=== PATIENT | male | born 1940 | race Caucasian/White ===

== ENCOUNTER → 2023-06-21 10:46 | Outpatient (REF) | payer MEDICARE, OTHER, SELFPAY | LOC: DHCBC MAIN 10:46 | PROVIDERS: ATTENDING PHYSICIAN Internal Medicine Cardiovascular Disease; FAMILY PHYSICIAN Family Medicine | DX: I10 Essential (primary) hypertension (principal); I25.10 Atherosclerotic heart disease of native coronary artery without angina pectoris; E78.00 Pure hypercholesterolemia, unspecified; I77.811 Abdominal aortic ectasia | CPT/HCPCS: 93306 ==

== ENCOUNTER → 2023-06-22 10:02 | Outpatient (REF) | payer MEDICARE, OTHER, SELFPAY | LOC: WOUND 10:02 | PROVIDERS: ATTENDING PHYSICIAN Surgery; REFERRING PHYSICIAN Family Medicine | DX: T81.31XA Disruption of external operation (surgical) wound, not elsewhere classified, initial encounter (principal); S21.209A Unspecified open wound of unspecified back wall of thorax without penetration into thoracic cavity, initial encounter; I25.10 Atherosclerotic heart disease of native coronary artery without angina pectoris; I10 Essential (primary) hypertension; T81.41XA Infection following a procedure, superficial incisional surgical site, initial encounter; X58.XXXA Exposure to other specified factors, initial encounter | CPT/HCPCS: 99212 ==

== ENCOUNTER 2023-12-21 19:40 | Observation (INO) | payer MEDICARE, OTHER, SELFPAY ==
[2023-12-21 10:55] VITALS: BP 147/61
--- NOTE | 2023-12-21 11:44 | ED.GENMED ---
History of Present Illness
<Eugenia Bullock PA-C - Last Filed: 12/21/23 19:42>
General
Chief Complaint: Weakness
Source: patient and family (Daughter at bedside)
Exam Limitations: none
Time Seen by Provider: 12/21/23 11:16
Nursing documentation reviewed up to this point in time: agreed with
History of Present Illness
History of Present Illness:
Patient is an 83-year-old male with history hypertension, hyperlipidemia presenting to the emergency department for evaluation of generalized bodyaches and fatigue for the past 2 days. Patient states that he feels generally somewhat weak but denies
any associated fever, chills, chest pain, or shortness of breath, or urinary symptoms.. Patient denies any numbness/tingling in his extremities, visual changes, headache, or difficulty with speech. Patient denies any new rashes. Patient reports
that he did recently have a COVID infection about 2 to 3 weeks ago for which symptoms have mostly resolved at this point. At that time he did have a persistent cough and is primary care provider to treat him with a course of antibiotics. He states
cough is mostly resolved at this point.
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 He also endorses spending a good amount of time outdoors on the weekends mowing his lawn, gardening.
Patient has no known sick contacts.
Past History
<Eugenia Bullock PA-C - Last Filed: 12/21/23 19:42>
Past History
ED Past Medical History: CAD (1 stent followed by CBC), HTN, Hypercholesterolemia and Other (gout)
Social History
Tobacco: Non-smoker
Alcohol: Daily (Gin daily after 5pm, 1-3 glasses/day)
Drug: None
Living: with family
Employment: Employed
Review of Systems
<Eugenia Bullock PA-C - Last Filed: 12/21/23 19:42>
Review of Systems
Allergies reviewed?: Yes
All Other Systems: ROS reviewed and negative except as documented in HPI and ROS
Phy Exam
<Eugenia Bullock PA-C - Last Filed: 12/21/23 19:42>
Physical Exam
Physical Exam:
Vitals: Patient's vital signs are stable. Afebrile
General: Patient is well appearing, no acute distress. Nontoxic-appearing
Skin: Warm and dry, no rashes or lesions
Head: Normocephalic, atraumatic
Eyes: Sclera nonicteric. EOMs intact. No nystagmus.
Throat: Protecting airway. Moist mucous membranes
Neck: Normal ROM, no cervical spine tenderness, no meningismus
Cardiac: Regular rate and rhythm, no murmurs.
Pulm: Normal respiratory effort, no wheezes, rales, rhonchi heard on exam.
Abdomen: Abdomen soft. No abdominal tenderness.
Extremities: No evidence of cyanosis or edema. Great distal pulses in bilateral upper and lower extremities. Strength 5 out of 5 in upper and lower extremities. Some decreased pilot submersible strength noted bilaterally.
Neuro: AAOx3. CN II-XII intact. No focal neurologic deficits. Sensation fully intact. Normal finger-nose. Speech fluid
Psychiatric: Normal affect.
Course
<Eugenia Bullock PA-C - Last Filed: 12/21/23 19:42>
Orders/Labs/Results
Orders:
Orders
12/21/23 11:44
Electrocardiogram (*1) Urgent
Reason for Study: Fatigue / Weakness
EKG- Treatment ONCE
0.9% Sodium Chloride 1000 ml [Nss] 1,000 ml IV BOLUS
12/21/23 11:54
C-Reactive Protein Urgent
Comment: ADD ON
Complete Blood Count/With Diff Urgent
Comprehensive Metabolic Panel Urgent
Creatine Phosphokinase Urgent
Comment: ADD ON
Erythrocyte Sed Rate Urgent
Comment: ADD ON
Lyme Progressive Urgent
Monotest Urgent
Comment: MONOSPOT ADDED ON BY FLOOR 4:45PM 12-21-23
Rheumatoid Agglutinin Urgent
Comment: ADD ON
TSH Reflex To Free T4 Urgent
Comment: ADD ON
Uric Acid Urgent
Comment: ADDED
Urinalysis Reflex To Culture Urgent
Date Specimen was Collected: 12/21/23
Time Specimen was Collected: 11:48
12/21/23 12:39
Add On- LAB Urgent
Tests Added?: creatine kinase
12/21/23 14:35
CT Head W/o Iv Contrast Urgent
Comment:
Reason For Exam: weakness
12/21/23 Dinner
Regular
At Your Request: Full Participation
Does patient need a safe tray?: No
12/21/23 16:37
PT Consult [Pt Eval And Treat] Urgent
Activity Level: As Tolerated
12/21/23 16:46
Add On- LAB Urgent
Tests Added?: monospot
12/21/23 17:14
Add On- LAB Urgent
Tests Added?: ESR/ CRP
12/21/23 18:29
Add On- LAB Urgent
Tests Added?: TSH w/ reflex to T4
12/21/23 18:59
Admit/Transfer Patient As Directed
Co-Sign Provider:
Level of Care: Observation services
Assign to:: Medical/Surgical
Physician / Group: miguel
Diagnosis: reactive arthritis
Code Status As Directed
Resuscitation Status: Full Code
12/21/23 19:03
Prednisone [Deltasone] 40 mg PO DAILY STA
12/21/23 22:22
Acetaminophen [Tylenol] 650 mg PO Q4HPRN PRN
Heparin 5,000 units SC Q12
Niacin 100 mg PO BID
Ramipril [Altace] 10 mg PO BID
12/21/23 22:22
Activity As Directed
Activity Level: As Tolerated
Vital Signs As Directed
Frequency: Per unit guidelines
Ot Eval And Treat Routine
DX Deep Vein Thrombosis Video Routine
12/22/23 06:55
Complete Blood Count/With Diff IN AM
12/22/23 08:00
Amlodipine [Norvasc] 10 mg PO DAILY
Aspirin Chewable [Low Strength Aspirin] 81 mg PO DAILY
Febuxostat (Non-Form) [Uloric] 80 mg PO DAILY
Metoprolol Xl [Toprol Xl] 25 mg PO DAILY
Rosuvastatin Calcium [Crestor] 20 mg PO DAILY
12/22/23 11:54
Cyclic Citrullinat Pep IgG/IgA [S] Urgent
Comment: ADD ON
Abnormal Lab Results
12/21/23
11:54
WBC 13.5 H 10^3/uL
(4.8-10.8)
RBC 4.50 L 10^6/uL
(4.70-6.10)
MCV 96.7 H fL
(80.0-94.0)
MCH 32.7 H pg
(27.0-31.0)
Abs Immat Gran (auto) 0.1 H 10^3/uL
(0-0.05)
Absolute Neuts (auto) 11.6 H 10^3/uL
(1.4-6.5)
Absolute Lymphs (auto) 0.9 L 10^3/uL
(1.2-3.4)
Absolute Monos (auto) 1.0 H 10^3/uL
(0.1-0.6)
Neutrophils % 85.5 H %
(42.2-75.2)
Lymphocytes % 6.5 L %
(20.5-51.1)
ESR 24 H mm/hour
(0-20)
BUN 28 H mg/dl
(9-20)
Glucose 130 H mg/dl
(70-99)
Uric Acid 2.0 L mg/dl
(3.5-8.5)
C-Reactive Protein 145.60 H mg/L
(0.0-10.00)
Urine Ketones 1+ A
(Negative)
12/21/23 11:54
12/21/23 11:54
Vital Signs
Initial and Last Documented VS:
Initial Vital Signs
Temp Pulse Resp BP Pulse Ox
98.6 F 85 16 147/61 98
12/21/23 10:55 12/21/23 10:55 12/21/23 10:55 12/21/23 10:55 12/21/23 10:55
Last Documented Vital Signs
Temp Pulse Resp BP Pulse Ox
97.9 F 83 20 150/75 96
12/22/23 15:30 12/22/23 15:30 12/22/23 15:30 12/22/23 15:30 12/22/23 15:30
<Yoel Null MD - Last Filed: 12/21/23 18:13>
Orders/Labs/Results
Orders:
Orders
12/21/23 11:44
Electrocardiogram (*1) Urgent
Reason for Study: Fatigue / Weakness
EKG- Treatment ONCE
0.9% Sodium Chloride 1000 ml [Nss] 1,000 ml IV BOLUS
12/21/23 11:54
C-Reactive Protein Urgent
Comment: ADD ON
Complete Blood Count/With Diff Urgent
Comprehensive Metabolic Panel Urgent
Creatine Phosphokinase Urgent
Comment: ADD ON
Erythrocyte Sed Rate Urgent
Comment: ADD ON
Lyme Progressive Urgent
Monotest Urgent
Comment: MONOSPOT ADDED ON BY FLOOR 4:45PM 12-21-23
Rheumatoid Agglutinin Urgent
Comment: ADD ON
TSH Reflex To Free T4 Urgent
Comment: ADD ON
Uric Acid Urgent
Comment: ADDED
Urinalysis Reflex To Culture Urgent
Date Specimen was Collected: 12/21/23
Time Specimen was Collected: 11:48
12/21/23 12:39
Add On- LAB Urgent
Tests Added?: creatine kinase
12/21/23 14:35
CT Head W/o Iv Contrast Urgent
Comment:
Reason For Exam: weakness
12/21/23 Dinner
Regular
At Your Request: Full Participation
Does patient need a safe tray?: No
12/21/23 16:37
PT Consult [Pt Eval And Treat] Urgent
Activity Level: As Tolerated
12/21/23 16:46
Add On- LAB Urgent
Tests Added?: monospot
12/21/23 17:14
Add On- LAB Urgent
Tests Added?: ESR/ CRP
12/21/23 18:29
Add On- LAB Urgent
Tests Added?: TSH w/ reflex to T4
12/21/23 18:59
Admit/Transfer Patient As Directed
Co-Sign Provider:
Level of Care: Observation services
Assign to:: Medical/Surgical
Physician / Group: miguel
Diagnosis: reactive arthritis
Code Status As Directed
Resuscitation Status: Full Code
12/21/23 19:03
Prednisone [Deltasone] 40 mg PO DAILY STA
12/21/23 22:22
Acetaminophen [Tylenol] 650 mg PO Q4HPRN PRN
Heparin 5,000 units SC Q12
Niacin 100 mg PO BID
Ramipril [Altace] 10 mg PO BID
12/21/23 22:22
Activity As Directed
Activity Level: As Tolerated
Vital Signs As Directed
Frequency: Per unit guidelines
Ot Eval And Treat Routine
DX Deep Vein Thrombosis Video Routine
12/22/23 06:55
Complete Blood Count/With Diff IN AM
12/22/23 08:00
Amlodipine [Norvasc] 10 mg PO DAILY
Aspirin Chewable [Low Strength Aspirin] 81 mg PO DAILY
Febuxostat (Non-Form) [Uloric] 80 mg PO DAILY
Metoprolol Xl [Toprol Xl] 25 mg PO DAILY
Rosuvastatin Calcium [Crestor] 20 mg PO DAILY
12/22/23 11:54
Cyclic Citrullinat Pep IgG/IgA [S] Urgent
Comment: ADD ON
Abnormal Lab Results
12/21/23
11:54
WBC 13.5 H 10^3/uL
(4.8-10.8)
RBC 4.50 L 10^6/uL
(4.70-6.10)
MCV 96.7 H fL
(80.0-94.0)
MCH 32.7 H pg
(27.0-31.0)
Abs Immat Gran (auto) 0.1 H 10^3/uL
(0-0.05)
Absolute Neuts (auto) 11.6 H 10^3/uL
(1.4-6.5)
Absolute Lymphs (auto) 0.9 L 10^3/uL
(1.2-3.4)
Absolute Monos (auto) 1.0 H 10^3/uL
(0.1-0.6)
Neutrophils % 85.5 H %
(42.2-75.2)
Lymphocytes % 6.5 L %
(20.5-51.1)
ESR 24 H mm/hour
(0-20)
BUN 28 H mg/dl
(9-20)
Glucose 130 H mg/dl
(70-99)
Uric Acid 2.0 L mg/dl
(3.5-8.5)
C-Reactive Protein 145.60 H mg/L
(0.0-10.00)
Urine Ketones 1+ A
(Negative)
12/21/23 11:54
12/21/23 11:54
Vital Signs
Initial and Last Documented VS:
Initial Vital Signs
Temp Pulse Resp BP Pulse Ox
98.6 F 85 16 147/61 98
12/21/23 10:55 12/21/23 10:55 12/21/23 10:55 12/21/23 10:55 12/21/23 10:55
Last Documented Vital Signs
Temp Pulse Resp BP Pulse Ox
97.9 F 83 20 150/75 96
12/22/23 15:30 12/22/23 15:30 12/22/23 15:30 12/22/23 15:30 12/22/23 15:30
<Eugenia Bullock PA-C - Last Filed: 12/21/23 19:42>
MDM/Problems Addressed
Differential Diagnosis Includes:
Not limited to: Viral illness, Lyme disease, post-COVID, UTI, cardiac arrhythmia, dehydration, GBS, PMR
MDM/Problems Addressed:
83-year-old male presenting with progressive bilateral weakness and myalgias for the past 2 days. Did have recent COVID infection approximately 3 weeks ago. No fever, chills, numbness/tingling in extremities. Patient's vital signs are stable, he
is afebrile. Physical exam as above. Patient is well-appearing, in no apparent distress. Heart regular rate and rhythm. Patient breathing without any difficulty, no apparent distress. Lungs clear bilaterally. No difficulty with swallowing.
Abdomen soft and nontender. Patient does have full strength in bilateral upper and lower extremities with great sensation. Great distal pulses in bilateral upper and lower extremities. He does have some mild decreased pilot submersible strength in bilateral
hands. There are no other focal neurologic deficits noted. He is alert and oriented x [address] and time. A lengthy workup in emergency department was performed. Labs noted. A mild leukocytosis of 13.5 which does appear chronic per
patient. There was some mild dehydration noted which patient was repleted with a bag of IV fluids. Urine shows no signs of infection. Both Lyme and monotest were negative. A TSH was obtained which was normal
Patient daughter was adamant on obtaining head CT. Did discuss low utility given no focal neurologic deficits and risk versus benefit was discussed with patient and family. They decided to proceed with head CT. Report was noted which shows no
acute intracranial abnormalities. There were some signs of decreased attenuation suggesting possible prior stroke. Patient is currently on aspirin and statin. Neurologically intact and no evidence that this is at all related to patient's
symptoms. No indication for acute stroke at this time
Inflammatory markers were ordered. ESR very minimally elevated at 24. CRP did come back significantly elevated at 145.6.
Patient and patient's family state is extremely out of character for patient. Given acute onset generalized weakness with progressive worsening�will admit for further workup. Low suspicion for PMR although in differential. It is possible that
symptoms may be related to some post viral syndrome including recent COVID versus GBS. Patient was seen by attending physician. Accepted to hospital service for observation and further evaluation.
Chronic conditions affecting care:
Hypertension
Acute Exacerbation and/or Progression of Chronic Illness:
Acutely hypertensive
<Eugenia Bullock PA-C - Last Filed: 12/21/23 19:42>
*Radiology
Radiology exam reviewed: preliminary read by ED provider and radiology read reviewed
*Pulse Oximetry
Patient hypoxic: no
*EKG
Interpreted by ED Provider?: Yes
EKG Intrepretation Date: 12/21/23
Interpretation: normal
Comparison EKG: changes noted
Heart Rate: 82
Rate: normal
Rhythm: sinus
[place]: normal axis
QRS Pattern: normal QRS
Ischemia: no ischemia
*[employer] Consultant Interpretation
Rate: [employer] Consultant- N/A
*Critical Care Note
Total Time (30-74mins, 75-104mins- exclusive of procedures): Not Applicable
ED Attending Note
<Eugenia Bullock PA-C - Last Filed: 12/21/23 19:42>
-
Portions of this chart may have been created with voice recognition software.� Occasional wrong word or��sound alike� substitutions may have occurred due to the inherent limitations of voice recognition software.
<Yoel Null MD - Last Filed: 12/21/23 18:13>
ED Attending Note
Patient seen and examined by attending physician: Yes
I performed the substantive portion of visit, reviewed & personally made and approve the management plan that is documented in note by myself or LATANYA.: Yes
ED Attending Note:
83-year-old male progressive weakness over 2 to 3 days. Appears symmetrical. No infectious symptoms no fever no headache no visual issues no swallowing issues.
Patient nontoxic in no distress. Clear lungs. Heart regular rate and rhythm. Abdomen nontender. Warm and dry. Perfusing well. Cranial nerves II through XII intact. No drift. Patient has weak zipper trimmer hand bilaterally. He has got no patellar
reflexes bilaterally. However he is able to ambulate relatively well.
Nonspecific leukocytosis that he has had in the past. No other infectious symptoms nonspecific general weakness. Theoretically Guillain-Bailey� syndrome would be in the differential. He did have a viral infection 3 weeks ago. COVID. Doubt central
neurologic issue. Polymyalgia rheumatica would be in the differential although unlikely. Will also check his thyroid. Discussed inpatient outpatient management with the family. They are not comfortable with outpatient further workup and patient
will be admitted to [facility] for further evaluation
Discharge Plan
Departure
Patient Disposition: Admit
Date of Disposition: 12/21/23
Time of Disposition: 17:16
Presentation/result/management discussed w/ accepting MD/DO: Hospitalist
Discharge Problem:
Generalized weakness, Fatigue, Myalgia, Leukocytosis
Interventions
Interventions:
*Nursing Disposition Last Done: 12/21/23 22:19
ED- Cardiac Assessment Last Done: 08/01/24 12:08
ED- Neurological Assessment Last Done: 12/21/23 12:08
ED- Pulmonary Assessment Last Done: 12/21/23 12:08
Discharge Date and Time
Discharge Date/Time: 12/21/23 22:21
[2023-12-21] MEDS: NSS 1000 IV (11:54)
[2023-12-21 12:09] LABS: Urine Albumin Negative (Neg - Trace); Urine Bilirubin Negative (Negative); Urine Character Clear (Clear); Urine Color Yellow; Urine Glucose Negative (Negative); Urine Ketone 1+ (Negative); Urine Leukocyte Negative (Negative); Urine Nitrite Negative (Negative); Urine Occult Blood Negative (Negative); Urine Specific Gravity 1.015 (<1.030); Urine Urobilinogen Negative (Neg - 1+)
[2023-12-21 12:10] LABS: % Basophils 0.3 % (0-2); % Eosinophils 0.2 % (0-6); % Immature Granulocytes 0.4 % (0-0.5); % Lymphocytes 6.5 % (20.5-51.1); % Monocytes 7.1 % (1.7-9.3); % Neutrophils 85.5 % (42.2-75.2); Absolute Immature Granulocytes 0.1 10^3/uL (0-0.05); Absolute Lymphocytes 0.9 10^3/uL (1.2-3.4); Absolute Neutrophils 11.6 10^3/uL (1.4-6.5); Hematocrit 43.5 % (39.0-52.0); Hemoglobin 14.7 g/dL (13.0-18.0); Mean Corp Hgb Conc. 33.8 g/dL (33.0-37.0); Mean Corpuscular Hgb 32.7 pg (27.0-31.0); Mean Corpuscular Volume 96.7 fL (80.0-94.0); Mean Platelet Volume 9.6 fL (7.4-10.4); Nucleated Red Blood Cells % 0 % (-); Platelet Count 213 10^3/uL (130-400); White Blood Cell Count 13.5 10^3/uL (4.8-10.8)
[2023-12-21 12:21] LABS: ALT (SGPT) 21 U/L (0-50); AST (SGOT) 26 U/L (17-59); Albumin 4.3 g/dl (3.5-5.0); Alkaline Phosphatase 102 U/L (38-126); Blood Urea Nitrogen 28 mg/dl (9-20); Calcium 9.9 mg/dl (8.4-10.2); Carbon Dioxide 26 mmol/L (22-30); Chloride 105 mmol/L (98-107); Glucose 130 mg/dl (70-99); Potassium 4.7 mmol/L (3.5-5.1); Sodium 139 mmol/L (135-145); eGFR > 60.00
[2023-12-21 13:40] LABS: Creatine Phosphokinase 80 U/L (55-170)
[2023-12-21 16:01] LABS: Lyme Antibody Screen, EIA Negative (Negative)
[2023-12-21 16:39] VITALS: BP 145/67
[2023-12-21 17:32] LABS: Erythrocyte Sed Rate 24 mm/hour (0-20)
[2023-12-21 17:45] LABS: Monotest Negative (Negative)
--- NOTE | 2023-12-21 18:04 | CM ---
Addendum entered by Dina Figueroa RN 12/21/23 18:27:
CM spoke with patient and daughter in room. Patient confirmed demographics. Patient lives with his . His daughter lives next to the duplex next to him. 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 Patient
has a PCP and has medication coverage.
[facility] letter given and explained to patient.
Original Note:
CM was asked to assist with discharge planning options for patient. CM reviewed PT evaluation. Patient was recommended for outpatient PT and would not be eligible for SNF unless private pay.
CM spoke with ED PA Eugenia Bullock. Plan was to admit for further work up of fatigue and weakness.
Dr. Null in to speak with patient.
--- NOTE | 2023-12-21 19:04 | HPS.HSE ---
Family Physician
-
Family Physician: Giacomo Garcia
Chief Complaint
-
joint pains
History of Present Illness
84-year-old female with past medical history of coronary artery disease, hypertension, hyperlipidemia, gout, alcohol use disorder, presenting with generalized body aches and fatigue for the past 2 days. He feels weak but denies any fevers or
chills, chest pain, shortness of breath or urinary symptoms. Denies any sore throat or runny nose, nausea vomiting or diarrhea, numbness or tingling, visual changes, headache, speech difficulties. He denies any rashes. He had COVID infection 2 to
3 weeks ago treated with prednisone and symptoms have resolved since then. He did have persistent cough that was treated with oral antibiotics but cough is resolved.
He complains of diffuse joint pains including knees, wrist, hand joints, worse in the morning and improves throughout the day. 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
He has not had a gout flare in several years and when he developed gout it was in the big toes.
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 He is medically out of time outdoors on the weekends mowing his lawn gardening. He denies any sick contacts.
He drinks 2 drinks of gin per day. Denies smoking.
Medical History
Past Medical History
Past Medical History: Reports Other (coronary artery disease, hypertension, hyperlipidemia, gout, alcohol use disorder,)
Past Surgical History: Reports None
Social History
Tobacco: Non-smoker
Alcohol: Daily
Drug: None
Family History
Family History: Not pertinent
Allergies / Home Medications
Allergies reflects when Allergies were last updated in [facility].
Home Medications with original date entered in [facility]
Allergy/Medication List:
Allergies
Allergy/AdvReac Type Severity Reaction Status Date / Time
No Known Allergies Allergy Verified 12/21/23 10:54
Home Medications
amlodipine 10 mg tablet 10 mg PO DAILY Blood Pressure 04/25/23
aspirin 81 mg chewable tablet 81 mg PO DAILY Blood Clot Prevention/Tx 04/25/23
febuxostat 80 mg tablet (Uloric) 80 mg PO DAILY Gout 04/25/23
metoprolol succinate 25 mg tablet,extended release 24 hr 25 mg PO DAILY Blood Pressure 04/25/23
niacin 100 mg tablet 100 mg PO BID Supplement 04/25/23
ramipril 10 mg capsule 10 mg PO BID Blood Pressure 04/25/23
acetaminophen 650 mg tablet,extended release 650 mg PO Q8HPRN PRN mild pain 12/21/23
rosuvastatin 20 mg tablet 20 mg PO DAILY 12/21/23
Review of Systems
-
History Source: Patient
A 12 point ROS was completed and negative except as noted: Yes
Constitutional: Reports No Symptoms
EENT: Reports No Symptoms
Respiratory: Reports No Symptoms
Cardiac: Reports No Symptoms
Abdomen/GI: Reports No Symptoms
: Reports No Symptoms
Musculoskeletal: Reports See HPI
Skin: Reports No Symptoms
Neurological: Reports No Symptoms
Endocrine: Reports No Symptoms
Hematologic/Lymphatic: Reports No Symptoms
Psych: Reports No Symptoms
Physical Exam
Vital Signs
Vital Signs
Temp Pulse Resp BP Pulse Ox
98.6 F 75 18 145/67 95
12/21/23 10:55 12/21/23 16:39 12/21/23 16:39 12/21/23 16:39 12/21/23 16:39
Physical Exam
General: Well Developed, Well Nourished and No Apparent Distress
HEENT: NormoCephalic, Moist mucous membranes and Atraumatic
Respiratory: Clear
Cardiac: S1/S2 and Regular Rhythm; No Murmur or Rub
GI: Soft, Non Tender, Non Distended and Normal Bowel Sounds; No Organomegaly
Rectal: Deferred by Provider
Musculoskeletal: No Clubbing, No Cyanosis and No Edema
Skin: No Rash
Neuro: Nonfocal/grossly intact
Laboratory Results
-
12/21/23 11:54
12/21/23 11:54
Laboratory Results
Total Bilirubin 1.0 mg/dl (0.2-1.3) 12/21/23 11:54
AST 26 U/L (17-59) 12/21/23 11:54
ALT 21 U/L (0-50) 12/21/23 11:54
Alkaline Phosphatase 102 U/L (38-126) 12/21/23 11:54
Data Reviewed
-
Lab Data: Labs Reviewed by me
Old Records: Reviewed
Impression/Plan
-
IMPRESSION:
PLAN:
# Generalized joint pain/weakness suspect reactive arthritis from post COVID, versus gout, given history of gout
-No focal joint inflammation on examination
-CK normal so myositis unlikely
-Elevated CRP
-Urinalysis negative
-CT head negative
-Monospot pending
-Check uric acid
-Start prednisone 40 mg
-PT/OT
-Outpatient follow-up with rheumatology
# Chronic leukocytosis
-Stable
Coronary artery disease
-Continue aspirin
-Continue metoprolol
Essential hypertension
-Continue amlodipine
-Continue ramipril
Hyperlipidemia
-Continue statin
Gout
-Continue Oxistat
Alcohol use disorder
Full code
DVT prophylaxis- heparin
Regular diet
[2023-12-21] MEDS: DELTASONE 40 MG PO (19:47)
[2023-12-21 22:30] VITALS: BP 149/67; BMI 27.0
--- NOTE | 2023-12-21 22:30 | PTCARENOTE ---
Pt arrived onto floor @2230. Pt AAOx3 and able to ambulate into room without assistance. Pt with no complaints of pain at this time, vital signs are stable. Pt oriented to room and call gibbs; will continue to monitor
[2023-12-21] MEDS: HEPARIN 5000 UNITS SC (23:27)
[2023-12-21] MEDS: NIACIN 100 MG PO (23:27)
[2023-12-21] MEDS: ALTACE 10 MG PO (23:27)
[2023-12-22 07:00] VITALS: BP 162/75
[2023-12-22 07:07] LABS: % Basophils 0.2 % (0-2); % Immature Granulocytes 0.5 % (0-0.5); % Monocytes 3.8 % (1.7-9.3); % Neutrophils 87.5 % (42.2-75.2); Absolute Lymphocytes 0.5 10^3/uL (1.2-3.4); Absolute Monocytes 0.2 10^3/uL (0.1-0.6); Absolute Neutrophils 5.6 10^3/uL (1.4-6.5); Hematocrit 40.8 % (39.0-52.0); Hemoglobin 13.8 g/dL (13.0-18.0); Mean Corp Hgb Conc. 33.8 g/dL (33.0-37.0); Mean Corpuscular Hgb 33.2 pg (27.0-31.0); Mean Corpuscular Volume 98.1 fL (80.0-94.0); Mean Platelet Volume 9.5 fL (7.4-10.4); Nucleated Red Blood Cells % 0 % (-); Platelet Count 187 10^3/uL (130-400); Red Blood Cell Count 4.16 10^6/uL (4.70-6.10); Red Cell Dist. Width 12.9 % (11.5-14.5); White Blood Cell Count 6.4 10^3/uL (4.8-10.8)
[2023-12-22] MEDS: DELTASONE 40 MG PO (07:56)
[2023-12-22] MEDS: CRESTOR 20 MG PO (07:57)
[2023-12-22] MEDS: HEPARIN 5000 UNITS SC (07:57)
[2023-12-22] MEDS: LOW STRENGTH ASPIRIN 81 MG PO (07:57)
[2023-12-22] MEDS: NORVASC 10 MG PO (07:57)
[2023-12-22] MEDS: TOPROL XL 25 MG PO (07:57)
[2023-12-22] MEDS: ALTACE 10 MG PO (09:01)
[2023-12-22] MEDS: NIACIN 100 MG PO (09:01)
[2023-12-22] MEDS: ULORIC 80 MG PO (09:01)
--- NOTE | 2023-12-22 09:35 | W.PN.HOSP.TC ---
Addendum entered and electronically signed by Juliane Markham MD 12/22/23 16:08:
I saw and evaluated the patient independently. I reviewed the resident�s note and agree with findings and plan as documented by Dr. Tan.
GENERAL: well developed, well nourished, male in no apparent distress
HEENT: NC/AT
HEART: regular rate and rhythm, +S1, +S2
LUNGS : clear to auscultation bilaterally
ABDOM: soft, nontender, nondistended, + bowel sounds
EXT: no cyanosis, clubbing, or edema--no DIP, PIP joint tenderness, wrists mobile no pain
NEUROLOGIC: grossly intact
Generalized joint pain/weakness suspect reactive arthritis from post COVID--pt also with features of RA by history---No focal joint inflammation on examination--Elevated CRP and ESR--rolling walker as per PT/OT---Start prednisone 40 mg. Patient
states after prednisone he feels much better and all weakness and stiffness has gone--Outpatient follow-up with rheumatology--Rheumatoid factor and CCP labs ordered--Discharge today with steroids
Chronic leukocytosis--Stable
Coronary artery disease-Continue aspirin-Continue metoprolol
Essential hypertension-Continue amlodipine-Continue ramipril
Hyperlipidemia-Continue statin
Gout-Continue Oxistat
Alcohol use disorder
Full code
DVT prophylaxis- heparin
Original Note:
Today's Communication/Plan
-
Patient feels much better on prednisone. Stable and discharged today.
Assessment / Plan
Assessment / Plan
# Generalized joint pain/weakness suspect reactive arthritis from post COVID
-No focal joint inflammation on examination
-Elevated CRP and ESR
-Start prednisone 40 mg. Patient states after prednisone he feels much better and all weakness and stiffness has gone.
-PT/OT
-Patient has history of increased stiffness and joint tenderness in the morning consistent with rheumatoid arthritis
-Potentially underlying rheumatoid arthritis exacerbated post COVID infection.
-Outpatient follow-up with rheumatology
-Rheumatoid factor and CCP labs ordered
-Discharge today with steroids
-follow-up in rheumatology
# Chronic leukocytosis
-Stable
Coronary artery disease
-Continue aspirin
-Continue metoprolol
Essential hypertension
-Continue amlodipine
-Continue ramipril
Hyperlipidemia
-Continue statin
Gout
-Continue Oxistat
Alcohol use disorder
Full code
DVT prophylaxis- heparin
Regular diet
Anticipated Discharge: Today
Subjective/Interval History
-
Date of Service: December 22, 2023
Objective Data
-
Labs:
Laboratory Results
12/22/23
06:55
WBC 6.4
Hgb 13.8
Hct 40.8
Plt Count 187
Vital Signs:
Vital Signs
Temp Pulse Resp BP Pulse Ox
97.3 F 87 18 149/67 96
12/22/23 07:00 12/22/23 07:00 12/22/23 07:00 12/22/23 07:57 12/22/23 09:05
I&O
12/21/23 12/22/23 12/23/23
06:59 06:59 06:59
Intake Total 240 / 240
Balance 240 / 240
Review of Systems
-
History Source: Patient
Respiratory: Reports No Symptoms
Cardiac: Reports No Symptoms
Abdomen/GI: Reports No Symptoms
Genitourinary: Reports No Symptoms
Musculoskeletal: Reports No Symptoms
Skin: Reports No Symptoms
Neuro: Reports No Symptoms
Physical Exam
-
General: Well Developed, Well Nourished and No Apparent Distress
Respiratory: Clear to Auscultation
Cardiac: Regular Rhythm and S1/S2
GI: Soft, Nontender and Nondistended
Musculoskeletal: No Edema and Other (No hand, wrist, knee, ankle joint tenderness with palpation); Negative Cyanosis, Edema, Right Lower Extrem or Edema, Left Lower Extrem
Neuro: AO x 3
Psych: Calm
--- NOTE | 2023-12-22 14:38 | CM ---
Patient seen at bedside. Patient lives in a duplex 2 story with daughter on the other side of the home. Patient states that he still works and that he plans to go home with no needs at this time. Patient PCP is Dr. Garcia and he will see him upon
return home. Patient stated that he understood the OBS/EGAN form as it had been explained to him yesterday. Patient plan is for discharge home today. CM will continue to follow for discharge planning needs.
Plan; home with no needs; follow up with pcp
[2023-12-22 15:30] VITALS: BP 150/75
--- NOTE | 2023-12-22 19:45 | W.DCSUMMARY ---
Addendum entered and electronically signed by Juliane Markham MD 12/22/23 20:58:
Read, reviewed, and agree. See same day progress note for additional details. Time spent coordinating care, DC planning, review of DC plan of care with resident, transition of care, review of records in EMR, med rec, consults, notes, d/w
consultants, nursing, family, and CM = 16 mins
Original Note:
Discharge Summary
Discharge Data
Date of Admission: 12/21/23
Date of Discharge: 12/22/23
-
Pending Results: Yes
Additional Pending Results:
Rheumatoid factor, CCP
Hospital Course
Primary diagnosis:
-Generalized joint pain likely reactive arthritis
Secondary diagnosis:
� Chronic leukocytosis
� Coronary artery disease
� Essential hypertension
� Hyperlipidemia
� Gout
� Alcohol use disorder
Hospital course:
Jose R is an 84-year-old male who presented to the ED with weakness and diffuse joint pains. 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 Patient was admitted and worked up for diffuse weakness. 3 weeks prior
patient had COVID infection and treated with prednisone. Patient had residual cough treated with antibiotics. Since then symptoms have resolved. Head CT did not show any acute findings. ESR 24, CRP 145.6, uric acid 2.0. White blood cell count
13.5 however patient has a history of chronic leukocytosis. Patient was started on prednisone 40 mg. The next morning patient felt significantly better and almost back to baseline. All weakness and stiffness had gone.
Today, patient is clinically stable and discharged on prednisone taper. Recommended to follow-up with rheumatology.
Discharge Plan
-
Patient Disposition: Home (Routine Discharge)
Discharge Diagnosis/Procedures: Generalized joint pain likely reactive arthritis, chronic leukocytosis, coronary artery disease, essential hypertension, hyperlipidemia, gout, alcohol use disorder
Condition: Good
Diet: As tolerated
Activity: As tolerated
Driving Restrictions: As prior to admission
Bathing Restrictions: None
Referrals:
Nataliia Keller MD [Active] - (Call for appointment)
Giacomo Garcia DO [Family Provider] - in one week
Additional Discharge Medication Instructions: If symptoms start to develop while on the taper, maintain or increase prednisone dose. Reach out to PCP for refill prescription.
Prescriptions:
New
prednisone 10 mg Tablet
See Rx Instructions .ROUTE .COMPLEX Qty: 30 0RF
Rx Instructions:
Take By Mouth:
40 mg daily x3 days, 30 mg daily x3 days,
20 mg daily x3 days, 10 mg daily x3 days.
Continued
amlodipine 10 mg Tablet
10 mg PO DAILY
niacin 100 mg Tablet
100 mg PO BID
aspirin 81 mg Tablet,Chewable
81 mg PO DAILY
metoprolol succinate 25 mg Tablet Extended Release 24 Hr
25 mg PO DAILY
ramipril 10 mg Capsule
10 mg PO BID
febuxostat [Uloric] 80 mg Tablet
80 mg PO DAILY
acetaminophen 650 mg Tablet Extended Release
650 mg PO Q8HPRN PRN (Reason: mild pain)
rosuvastatin 20 mg Tablet
20 mg PO DAILY
Discharge Orders:
Discharge Patient (As Directed); Ordered 12/22/23
Ordered By: Agnieszka Tan
Discharge Date and Time
Discharge Date/Time: 12/22/23 15:54
Print Language: SETSWANA
[2023-12-25 14:39] LABS: Rheumatoid Agglutinin Less Than 10 IU (<10 IU)
[2023-12-26 01:19] LABS: CCP Antibody IgG/IgA 4 Units (0-19)
== END 2023-12-22 15:54 | disposition home or self-care (01) ==
LOC: 4 WEST ACU 19:40
PROVIDERS: Physician Assistant; ADMITTING PHYSICIAN Hospitalist; ATTENDING PHYSICIAN Internal Medicine; EMERGENCY PHYSICIAN Emergency Medicine; FAMILY PHYSICIAN Family Medicine
DX: M25.50 Pain in unspecified joint (principal); R53.1 Weakness; D72.829 Elevated white blood cell count, unspecified; M10.9 Gout, unspecified; E86.0 Dehydration; M79.10 Myalgia, unspecified site; R53.83 Other fatigue; R79.82 Elevated C-reactive protein (CRP); R05.3 Chronic cough; F10.10 Alcohol abuse, uncomplicated; E78.00 Pure hypercholesterolemia, unspecified; I10 Essential (primary) hypertension; I25.10 Atherosclerotic heart disease of native coronary artery without angina pectoris; Z86.16 Personal history of COVID-19; Z95.5 Presence of coronary angioplasty implant and graft; Z79.82 Long term (current) use of aspirin
CPT/HCPCS: 70450; 80053; 81003; 82550; 84443; 84550; 85025; 85652; 86140; 86200; 86308; 86430; 86618; 93005; 96360; 97165; 99285; G0378

== ENCOUNTER → 2024-07-19 08:44 | Outpatient (REF) | payer MEDICARE, OTHER, SELFPAY | LOC: RAD 08:44 | PROVIDERS: ATTENDING PHYSICIAN Internal Medicine Cardiovascular Disease; FAMILY PHYSICIAN Family Medicine | DX: R93.5 Abnormal findings on diagnostic imaging of other abdominal regions, including retroperitoneum (principal); R79.89 Other specified abnormal findings of blood chemistry; I71.40 Abdominal aortic aneurysm, without rupture, unspecified | CPT/HCPCS: 74177; Q9967 ==

== ENCOUNTER 2024-10-27 01:43 | Inpatient (IN) | payer MEDICARE, OTHER, SELFPAY ==
[2024-10-26 22:17] VITALS: BP 146/73
[2024-10-26 22:40] LABS: % Basophils 0.2 % (0-2); % Eosinophils 0.5 % (0-6); % Immature Granulocytes 0.5 % (0-0.5); % Lymphocytes 17.3 % (20.5-51.1); % Monocytes 7.9 % (1.7-9.3); % Neutrophils 73.6 % (42.2-75.2); Absolute Monocytes 0.5 10^3/uL (0.1-0.6); Absolute Neutrophils 4.4 10^3/uL (1.4-6.5); Hematocrit 46.5 % (39.0-52.0); Hemoglobin 15.9 g/dL (13.0-18.0); Mean Corp Hgb Conc. 34.2 g/dL (33.0-37.0); Mean Corpuscular Volume 96.5 fL (80.0-94.0); Mean Platelet Volume 9.4 fL (7.4-10.4); Nucleated Red Blood Cells % 0 % (-); Platelet Count 165 10^3/uL (130-400); Red Blood Cell Count 4.82 10^6/uL (4.70-6.10); Red Cell Dist. Width 12.9 % (11.5-14.5); White Blood Cell Count 5.9 10^3/uL (4.8-10.8)
[2024-10-26 22:52] LABS: ALT (SGPT) 27 U/L (0-50); AST (SGOT) 31 U/L (17-59); Alkaline Phosphatase 66 U/L (38-126); Blood Urea Nitrogen 22 mg/dl (9-20); Calcium 10.1 mg/dl (8.4-10.2); Carbon Dioxide 21 mmol/L (22-30); Chloride 109 mmol/L (98-107); Glucose 117 mg/dl (70-99); Potassium 4.1 mmol/L (3.5-5.1); Sodium 144 mmol/L (135-145); Total Bilirubin 0.5 mg/dl (0.2-1.3); Total Protein 7.8 g/dl (6.3-8.2); eGFR 54.17
[2024-10-26 23:01] VITALS: BP 179/76
[2024-10-26 23:04] LABS: NT-proBNP 155 pg/ml; Troponin I < 0.012 ng/ml
--- NOTE | 2024-10-26 23:14 | ED.GENMED ---
History of Present Illness
General
Chief Complaint: Cardiac Symptoms
Source: patient
Exam Limitations: none
Time Seen by Provider: 10/26/24 23:13
Nursing documentation reviewed up to this point in time: agreed with
History of Present Illness
History of Present Illness:
84 yo male presents to the emergency department c/o shortness of breath and wheezing for the past 6 days. He was placed on a steroid inhaler, but is getting worse. He had similar symptoms and was hospitalized in the past year. He is a previous
smoker
Past History
Past History
ED Past Medical History: CAD (1 stent followed by CBC), HTN, Hypercholesterolemia and Other (gout)
Social History
Tobacco: Former smoker
Alcohol: Daily (Gin daily after 5pm, 1-3 glasses/day)
Drug: None
Living: with family
Employment: Employed
Review of Systems
Review of Systems
Allergies reviewed?: Yes
All Other Systems: Not applicable
Constitutional: Reports no symptoms
EENT: Reports no symptoms
Respiratory: Reports cough and trouble breathing
Cardiac: Reports no symptoms
ABD/GI: Reports no symptoms
: Reports no symptoms
Musculoskeletal: Reports no symptoms
Skin: Reports no symptoms
Neurological: Reports no symptoms
Endocrine: Reports no symptoms
Hematologic/Lymphatic: Reports no symptoms
Psychiatric: Reports no symptoms
Phy Exam
Physical Exam
Physical Exam:
Physical Exam
General: afebrile
Neck: supple. no meningeal signs. normal posterior pharynx
Heart: s1/s2 regular rate and rhythm, no murmur. equal radial
pulses.
HEENT: Pupils equal round reactive to light, EOMI
Lungs: Moderate respiratory distress. Wheezing bilaterally
Abdomen: normal bowel sounds. not tender. no CVAT
Neuro: alert and oriented. no focal neurological deficits cranial nerves II through XII intact
Skin: no rash
Psychiatric: well kept. interactive and cooperative
Extremities: no edema. no calf tenderness. negative homans. good distal pulses
Course
Orders/Labs/Results
Orders:
Orders
10/26/24 22:07
Electrocardiogram (*1) Urgent
Reason for Study: Shortness of Breath
EKG- Treatment ONCE
10/26/24 22:29
BNP [NT-proBNP] Urgent
Complete Blood Count/With Diff Urgent
Comprehensive Metabolic Panel Urgent
Troponin I Urgent
10/26/24 23:13
CR Chest - 2 Views Urgent
Comment:
Reason For Exam: short of breath
10/26/24 23:29
Dexamethasone Sod Phosphate [Decadron] 10 mg IV NOW STA
Ipratropium/Albuterol Sulfate [Duoneb] 3 ml INH R NOW STA
Abnormal Lab Results
10/26/24
22:29
MCV 96.5 H fL
(80.0-94.0)
MCH 33.0 H pg
(27.0-31.0)
Absolute Lymphs (auto) 1.0 L 10^3/uL
(1.2-3.4)
Lymphocytes % 17.3 L %
(20.5-51.1)
Chloride 109 H mmol/L
(98-107)
Carbon Dioxide 21 L mmol/L
(22-30)
BUN 22 H mg/dl
(9-20)
Glucose 117 H mg/dl
(70-99)
10/26/24 22:29
10/26/24 22:29
Vital Signs
Initial and Last Documented VS:
Initial Vital Signs
Temp Pulse Resp BP Pulse Ox
97.7 F 79 18 146/73 90
10/26/24 22:17 10/26/24 22:17 10/26/24 22:17 10/26/24 22:17 10/26/24 22:17
Last Documented Vital Signs
Temp Pulse Resp BP Pulse Ox
97.7 F 77 20 179/76 94
10/26/24 22:17 10/26/24 23:45 10/26/24 23:45 10/26/24 23:01 10/26/24 23:45
MDM/Problems Addressed
Differential Diagnosis Includes:
pneumonia, copd, chf
MDM/Problems Addressed:
84 yo male with hypoxia, likely copd exacerbation.
Chronic conditions affecting care: HTN and CAD
*Radiology
Radiology exam reviewed: preliminary read by ED provider (cxr nad)
*Pulse Oximetry
Patient hypoxic: yes
*EKG
Interpreted by ED Provider?: Yes
EKG Intrepretation Date: 10/26/24
EKG Intrepretation Time: 22:11
Interpretation: abnormal
Comparison EKG: no comparison EKG present
Heart Rate: 79
Rate: normal
Rhythm: sinus
[place]: normal axis
Interval: first degree heart block
QRS Pattern: normal QRS
Ischemia: no ischemia
*Upstairs Maid Interpretation
Rate: normal
Interpretation: normal
Heart Rate: 75
Rhythm: sinus
*Critical Care Note
Total Time (30-74mins, 75-104mins- exclusive of procedures): Not Applicable
Patient Management
Social determinants of health affecting care: Living situation and Strong social support
Discussion with other providers: Hospitalist
Escalation/DeEscalation of care consider admission/obs:
admit indicated
ED Attending Note
-
Portions of this chart may have been created with voice recognition software.� Occasional wrong word or��sound alike� substitutions may have occurred due to the inherent limitations of voice recognition software.
Discharge Plan
Departure
Patient Disposition: Admit
Date of Disposition: 10/27/24
Time of Disposition: 00:03
Admit to: Telemetry
Presentation/result/management discussed w/ accepting MD/DO: Hospitalist
Patient with high blood pressure during this ER visit?: Yes
Condition: Fair
Discharge Problem:
Acute exacerbation of chronic obstructive pulmonary disease (COPD)
Prescriptions:
No Action
amlodipine 10 mg Tablet
10 mg PO DAILY
niacin 100 mg Tablet
100 mg PO BID
aspirin 81 mg Tablet,Chewable
81 mg PO DAILY
metoprolol succinate 25 mg Tablet Extended Release 24 Hr
25 mg PO DAILY
ramipril 10 mg Capsule
10 mg PO BID
febuxostat [Uloric] 80 mg Tablet
80 mg PO DAILY
acetaminophen 650 mg Tablet Extended Release
650 mg PO Q8HPRN PRN (Reason: mild pain)
rosuvastatin 20 mg Tablet
20 mg PO DAILY
prednisone 10 mg Tablet
See Rx Instructions .ROUTE .COMPLEX Qty: 30 0RF
Rx Instructions:
Take By Mouth:
40 mg daily x3 days, 30 mg daily x3 days,
20 mg daily x3 days, 10 mg daily x3 days.
Referrals:
UNKNOWN - PT DOES,NOT KNOW [Family Provider]
Interventions
Interventions:
*Risk Screen - Suicide Last Done: 10/26/24 22:17
*General Assessment Last Done: 10/26/24 22:17
*Neglect/Abuse Screening Last Done: 10/26/24 22:17
*ED- Fall Risk Assessment Last Done: 10/26/24 23:10
*ED COVID-19 Vaccine History Last Done: 10/26/24 23:11
ED- Pulmonary Assessment Last Done: 10/26/24 23:08
ED- Cardiac Assessment Last Done: 10/26/24 23:08
Discharge Date and Time
Print Language: IRISH
[2024-10-26] MEDS: DECADRON 10 MG IV (23:41)
[2024-10-26] MEDS: DUONEB 3 ML INH (23:42)
[2024-10-27] VITALS (8 sets, daily range): BP systolic 130–179; BP diastolic 55–89; BMI 28.3
--- NOTE | 2024-10-27 01:09 | HPS.HSE ---
Family Physician
-
Family Physician: NOT KNOW UNKNOWN - PT DOES
Chief Complaint
-
Shortness of breath
History of Present Illness
This is a 84-year-old male with past medical history of CAD, hypertension, hyperlipidemia, gout, alcohol dependence, prior smoker presenting to the emergency department with shortness of breath and wheezing for the last 6 days.
Patient reports onset of cough that is productive of scant sputum 6 days ago. He denied having any fevers or chills. The cough progressed on until about 4 days ago when he saw his PMD. He was started on inhaled beta agonist as well as oral
steroids. Patient reported that his symptoms did not really improve. Today he noticed significant dyspnea on exertion when he walked up a flight of stairs and could not catch his breath afterwards. Denies having any chest pain. He denies any
lower extremity edema. He denies any palpitations. He has continued to have no fevers or chills.
In the emergency department he was afebrile with a temp of 97.7, blood pressure 132/61 pulse 77 respiratory 23 satting 97% on room air.
CBC was unremarkable with a white count of 5.9 hemoglobin 16 blood count of 165. ECG shows a normal sinus rhythm at a rate of 79 with 4 degree AV block and no acute ischemic changes. Troponin was negative.
BNP was negative
Electrolytes were normal. BUN/creatinine was stable at 22 and 1.3 respectively.
Chest x-ray shows no acute infiltrates.
Medical History
Past Medical History
Past Medical History: Reports Other (coronary artery disease, hypertension, hyperlipidemia, gout, alcohol use disorder,)
Past Surgical History: Reports None
Social History
Tobacco: Non-smoker
Alcohol: Daily
Drug: None
Family History
Family History: Not pertinent
Allergies / Home Medications
Allergies reflects when Allergies were last updated in [employer] computer.
Home Medications with original date entered in [employer] computer
Allergy/Medication List:
Allergies
Allergy/AdvReac Type Severity Reaction Status Date / Time
No Known Allergies Allergy Verified 12/21/23 10:54
Home Medications
amlodipine 10 mg tablet 10 mg PO DAILY Blood Pressure 04/25/23
aspirin 81 mg chewable tablet 81 mg PO DAILY Blood Clot Prevention/Tx 04/25/23
febuxostat 80 mg tablet (Uloric) 80 mg PO DAILY Gout 04/25/23
metoprolol succinate 25 mg tablet,extended release 24 hr 25 mg PO DAILY Blood Pressure 04/25/23
niacin 100 mg tablet 500 mg PO BID Supplement 04/25/23
ramipril 10 mg capsule 10 mg PO BID Blood Pressure 04/25/23
acetaminophen 650 mg tablet,extended release 650 mg PO Q8HPRN PRN mild pain 12/21/23
rosuvastatin 20 mg tablet 20 mg PO DAILY High Cholesterol 12/21/23
prednisone 5 mg tablet 5 mg PO DAILY 10/27/24
Review of Systems
-
History Source: Patient
A 12 point ROS was completed and negative except as noted: Yes
Constitutional: Reports No Symptoms
EENT: Reports No Symptoms
Respiratory: Reports Cough and Trouble Breathing
Cardiac: Reports No Symptoms
Abdomen/GI: Reports No Symptoms
: Reports No Symptoms
Musculoskeletal: Reports No Symptoms
Skin: Reports No Symptoms
Neurological: Reports No Symptoms
Endocrine: Reports No Symptoms
Hematologic/Lymphatic: Reports No Symptoms
Psych: Reports No Symptoms
Physical Exam
Vital Signs
Vital Signs
Temp Pulse Resp BP Pulse Ox
97.7 F 77 23 132/61 97
10/26/24 22:17 10/27/24 00:00 10/27/24 00:00 10/27/24 00:00 10/27/24 00:00
Physical Exam
General: Well Developed, Well Nourished and No Apparent Distress
HEENT: NormoCephalic, Moist mucous membranes and Atraumatic
Respiratory: Wheezes
Cardiac: S1/S2 and Regular Rhythm; No Murmur or Rub
GI: Soft, Non Tender, Non Distended and Normal Bowel Sounds; No Organomegaly
Rectal: Deferred by Provider
Musculoskeletal: No Clubbing, No Cyanosis and No Edema
Skin: No Rash
Neuro: Nonfocal/grossly intact
Laboratory Results
-
10/26/24 22:
10/26/24
Laboratory Results
Total Bilirubin 0.5 mg/dl (0.2-1.3) 10/26/24
AST 31 U/L (17-59) 10/26/24
ALT 27 U/L (0-50) 10/26/24
Alkaline Phosphatase 66 U/L (38-126) 10/26/24
Troponin I < 0.012 ng/ml 10/26/24
Data Reviewed
-
Diagnostic Radiology: Image Personally Visualized and interpreted
Medical Tests (Nuc Med, Echo, EKG etc): Image Personally Visualized and interpreted
Lab Data: Labs Reviewed by me
Old Records: Reviewed
Impression/Plan
-
IMPRESSION:
84-year-old with prior smoking history who presents to the emergency department with cough and shortness of breath. He has no fevers or chills. There is no leukocytosis. He has no evidence of pulmonary edema or peripheral edema. There is no
focal infiltrates on x-ray. His cough was productive of scant sputum. However he has not improved despite oral steroids and inhaled beta agonist at home. Patient has quit smoking over 30 years ago and denies frequent hospitalizations or ED visits
for pulmonary symptoms. My examination he has scattered wheezes throughout the lung martinez. There are no crackles. His peak flow is about 200. This is consistent with acute bronchitis although his lack of sputum is a bit atypical.
PLAN:
1.acute bronchitis/COPD exacerbation-moderate on 2 L satting 94 to 96%, significant scattered wheezes and tightness throughout lung martinez.
� Admit to MedSurg
� Will start with azithromycin
� IV Solu-Medrol 40 mg twice daily
� Nebs RTC and as needed wheezing
- Supplemental oxygen to keep sats greater 93, incentive spirometry
- Peak flow assessment daily
2.coronary artery disease�stable
- Continue aspirin statin and metoprolol
Hypertension
- Continue ramipril and amlodipine
DVT prophylaxis�Lovenox subcu
CODE STATUS�full code
[2024-10-27] MEDS: ZITHROMAX 500 MG PO ×2 (01:40→22:04)
--- NOTE | 2024-10-27 06:19 | TRANSFER ---
Pt up from ED to room 436-1, walked from stretcher to be with minimal assistance. 94% on 2L O2. VSS. AAOx3. Oriented to room. Call gibbs within reach. Plan of care ongoing.
[2024-10-27] MEDS: PULMICORT 0.5 MG INH ×2 (07:25→20:22)
[2024-10-27] MEDS: DUONEB 3 ML INH ×4 (07:25→20:22)
--- NOTE | 2024-10-27 08:01 | W.PN.HOSP.TC ---
Addendum entered and electronically signed by Dillon Meehan MD 10/27/24 11:43:
Cancel pulmonology consult.
Will ask pulmonology to set patient up with pulmonology in the office for outpatient PFTs.
Original Note:
Today's Communication/Plan
-
see bold
Assessment / Plan
Assessment / Plan
HPI: 84-year-old with prior smoking history who presents to the emergency department with cough and shortness of breath. He has no fevers or chills. There is no leukocytosis. He has no evidence of pulmonary edema or peripheral edema. There is no
focal infiltrates on x-ray. His cough was productive of scant sputum. However he has not improved despite oral steroids and inhaled beta agonist at home. Patient has quit smoking over 30 years ago and denies frequent hospitalizations or ED visits
for pulmonary symptoms. My examination he has scattered wheezes throughout the lung martinez. There are no crackles. His peak flow is about 200. This is consistent with acute bronchitis although his lack of sputum is a bit atypical.
#Acute bronchitis with bronchospasm
#Mild hypoxia
#Former smoker
Patient smoked from 17 years old to 50 years old, range from a half a pack per day to 2 packs/day, quit in 1989
He has never had PFTs, or seen pulmonology, therefore cannot say he has COPD at this point
Afebrile, no leukocytosis
Negative for flu, check COVID, check sputum Gram stain and culture
Chest x-ray negative for cardiopulmonary disease
Was satting 90% on room air in the ED, then placed on 2 L of oxygen, wean as tolerated
Continue IV Solu-Medrol, bronchodilators, azithromycin
Consult pulmonology
#Coronary artery disease
Continue aspirin statin and metoprolol
#Hypertension
Continue ramipril and amlodipine
#Daily alcohol use
DVT prophylaxis�Lovenox subcu
CODE STATUS�full code
Physical Exam
General: No acute distress
HEENT: Normocephalic, Atraumatic, EOMI, MMM
Respiratory: Mild expiratory wheezing
Cardiac: Normal S1/S2, Regular Rate and Rhythm
GI: Soft, Nontender, Nondistended, Normal Bowel Sounds
Extremities: No Clubbing, Cyanosis, or Edema
Neuro: Nonfocal/Grossly Intact
Psych: Calm, Cooperative
Derm: No Visible lesions
Anticipated Discharge: Within 24 hours
Subjective/Interval History
-
Date of Service: October 27, 2024
Patient reports his breathing is 50% improved. He continues to cough and wheeze, overall improved. No fever, no vomiting.
Objective Data
-
Labs:
Laboratory Results
10/26/24
22:29
WBC 5.9
Hgb 15.9
Hct 46.5
Plt Count 165
Sodium 144
Potassium 4.1
Chloride 109 H
Carbon Dioxide 21 L
BUN 22 H
Creatinine 1.3
Glucose 117 H
Calcium 10.1
Total Bilirubin 0.5
AST 31
ALT 27
Alkaline Phosphatase 66
Vital Signs:
Vital Signs
Temp Pulse Resp BP Pulse Ox
98.5 F 72 16 179/89 91
10/27/24 03:14 10/27/24 07:34 10/27/24 07:34 10/27/24 03:14 10/27/24 07:34
[2024-10-27] MEDS: ULORIC 80 MG PO (08:25)
[2024-10-27] MEDS: SOLU-MEDROL PF 40 MG IV ×2 (08:25→20:09)
[2024-10-27] MEDS: NORVASC 10 MG PO (08:25)
[2024-10-27] MEDS: TOPROL XL 25 MG PO (08:26)
[2024-10-27] MEDS: LOW STRENGTH ASPIRIN 81 MG PO (08:26)
[2024-10-27] MEDS: ALTACE 10 MG PO ×2 (08:26→20:09)
[2024-10-27] MEDS: CRESTOR 20 MG PO (08:26)
[2024-10-27 12:18] LABS: COVID-19 Antigen Negative (Negative)
--- NOTE | 2024-10-27 15:55 | CM ---
CM reviewed chart, patient seen bedside, initial assessment completed. Patient resides with his in a multiple story home, bedroom on second floor, three steps to enter home. Patient denies use of DME, denies VN/SNF history, reports outpatient
therapy in past in [place] ([facility] Patients reports PCP Giacomo Garcia, pharmacy [facility] in [place], confirms prescription coverage. Patient currently on O2, does not wear O2. CM will continue to follow for all discharge
planning needs.
Plan; home with likely, watch for O2 needs.
[2024-10-27] MEDS: LOVENOX 40 MG SC (17:22)
[2024-10-28 07:00] VITALS: BP 111/75
[2024-10-28] MEDS: PULMICORT 0.5 MG INH ×2 (07:15→20:06)
[2024-10-28] MEDS: DUONEB 3 ML INH ×4 (07:15→20:06)
[2024-10-28] MEDS: ULORIC 80 MG PO (09:28)
[2024-10-28] MEDS: NORVASC 10 MG PO (09:29)
[2024-10-28] MEDS: LOW STRENGTH ASPIRIN 81 MG PO (09:29)
[2024-10-28] MEDS: CRESTOR 20 MG PO (09:29)
[2024-10-28] MEDS: TOPROL XL 25 MG PO (09:29)
[2024-10-28] MEDS: ALTACE 10 MG PO ×2 (09:29→19:59)
[2024-10-28] MEDS: SOLU-MEDROL PF 40 MG IV ×2 (09:37→19:59)
[2024-10-28] MEDS: FLUSH (NSS) 1 FLUSH IV (09:39)
--- NOTE | 2024-10-28 10:19 | W.PN.HOSP.TC ---
Today's Communication/Plan
-
Cleared by pulmonology for discharge today
Assessment / Plan
Assessment / Plan
HPI: 84-year-old with prior smoking history who presents to the emergency department with cough and shortness of breath. He has no fevers or chills. There is no leukocytosis. He has no evidence of pulmonary edema or peripheral edema. There is no
focal infiltrates on x-ray. His cough was productive of scant sputum. However he has not improved despite oral steroids and inhaled beta agonist at home. Patient has quit smoking over 30 years ago and denies frequent hospitalizations or ED visits
for pulmonary symptoms. My examination he has scattered wheezes throughout the lung martinez. There are no crackles. His peak flow is about 200. This is consistent with acute bronchitis although his lack of sputum is a bit atypical.
#Acute bronchitis with bronchospasm
#Suspected acute on chronic COPD exacerbation
#Mild hypoxia
#Former smoker
Patient smoked from 17 years old to 50 years old, range from a half a pack per day to 2 packs/day, quit in 1989
He has never had PFTs
Afebrile, no leukocytosis, negative for flu
Chest x-ray negative for cardiopulmonary disease
Was satting 90% on room air in the ED, then placed on 2 L of oxygen, wean as tolerated
Improving on IV Solu-Medrol, bronchodilators, azithromycin
Appreciate pulmonology input, patient has suspected acute on chronic COPD exacerbation
Home oxygen prescription evaluation performed, he needs 2 L with activity
Medically stable for discharge on prednisone taper, bronchodilators, azithromycin to complete a 7-day course
After his prednisone taper, he is to resume his previous home prednisone 5 mg daily that he takes for rheumatoid arthritis
Follow-up with PCP in 1 week, and pulmonology in the office
#Rheumatoid arthritis
Hold prednisone 5 mg daily while on high-dose prednisone
#Coronary artery disease
Continue aspirin statin and metoprolol
#Hypertension
Continue ramipril and amlodipine
#Daily alcohol use
Updated daughter at bedside 10/28
DVT prophylaxis�Lovenox subcu
CODE STATUS�full code
Physical Exam
General: No acute distress
HEENT: Normocephalic, Atraumatic, EOMI, MMM
Respiratory: Mild expiratory wheezing
Cardiac: Normal S1/S2, Regular Rate and Rhythm
GI: Soft, Nontender, Nondistended, Normal Bowel Sounds
Extremities: No Clubbing, Cyanosis, or Edema
Neuro: Nonfocal/Grossly Intact
Psych: Calm, Cooperative
Derm: No Visible lesions
Anticipated Discharge: Today
Subjective/Interval History
-
Date of Service: October 27, 2024
Patient reports his breathing is 70% improved. Continues to cough and wheeze. No chest pain, no palpitations. No fever, no vomiting.
Objective Data
-
Vital Signs:
Vital Signs
Temp Pulse Resp BP Pulse Ox
97.8 F 73 16 163/66 91
10/27/24 07:30 10/27/24 11:24 10/27/24 11:24 10/27/24 07:30 10/27/24 08:00
--- NOTE | 2024-10-28 12:15 | CON.PUL ---
Consultation
Consultation Request
Date/Time Consultation Requested: 10/28/24
Date/Time Consultation Performed: 10/28/24
Performing Provider: Luis E
Reason for Consultation: SOB
Medical History
-
History of Present Illness:
Patient is an 84-year-old male with past medical history of CADs/p stent, hypertension, hyperlipidemia, gout, alcohol dependence, prior smoker presenting to the emergency department with shortness of breath and wheezing for the last 6 days. Patient
reports onset of cough that is productive of scant sputum 6 days ago. He denied having any fevers or chills. Saw PCP and started on inhaled beta agonist as well as oral steroids. Patient reported that his symptoms did not improve. Today he
noticed significant dyspnea on exertion when he walked up a flight of stairs and could not catch his breath afterwards. Denies having any chest pain. He denies any lower extremity edema. He denies any palpitations. He has continued to have no
fevers or chills.
In the emergency department he was afebrile with a temp of 97.7, blood pressure 132/61 pulse 77 respiratory 23 sat 97% on room air. Labs/EKG/CXR were unremarkable.
Was never diagnosed with lung disease in past, never seen pulmonary. Admitted for COPD exacerbation and placed on IV steroids.
Former smoker, up to 2PPD for 35 years, quit in .
Past Medical History
Past Medical History: Other (see list below)
Social History
Tobacco: Former Smoker
Alcohol: Daily
Drug: None
Family History
Family History: Reviewed & Not Pertinent
Allergies / Home Medications
Allergies
Allergy/AdvReac Type Severity Reaction Status Date / Time
No Known Allergies Allergy Verified 12/21/23 10:54
Home Medications
�Medication �Instructions �Recorded �Confirmed �Last Taken �Type
amlodipine 10 mg tablet 10 mg PO DAILY Blood Pressure 04/25/23 10/27/24 12/21/23 History
aspirin 81 mg chewable tablet 81 mg PO DAILY Blood Clot 04/25/23 10/27/24 12/21/23 History
Prevention/Tx
febuxostat 80 mg tablet (Uloric) 80 mg PO DAILY Gout 04/25/23 10/27/24 12/21/23 History
metoprolol succinate 25 mg 25 mg PO DAILY Blood Pressure 04/25/23 10/27/24 12/21/23 History
tablet,extended release 24 hr
niacin 100 mg tablet 500 mg PO BID Supplement 04/25/23 12/21/23 12/21/23 History
ramipril 10 mg capsule 10 mg PO BID Blood Pressure 04/25/23 10/27/24 12/21/23 History
acetaminophen 650 mg 650 mg PO Q8HPRN PRN mild pain 12/21/23 12/21/23 12/19/23 History
tablet,extended release
rosuvastatin 20 mg tablet 20 mg PO DAILY High Cholesterol 12/21/23 12/21/23 12/21/23 History
prednisone 5 mg tablet 5 mg PO DAILY INFLAMMATION 10/27/24 Unknown History
Review of Systems
-
History Source: Patient
All other systems: Negative unless noted
Vitals / Labs / Diagnostic Testing
Vital Signs
Temp Pulse Resp BP Pulse Ox
97.7 F 86 16 111/75 97
10/28/24 07:00 10/28/24 11:17 10/28/24 11:17 10/28/24 07:00 10/28/24 11:17
Lab Data
10/26/24 22:29
10/26/24 22:29
Microbiology
10/27/24 07:19 Nasal Swab Influenza Types A & B (JOBY) - Final
Negative for Influenza A & B, NAAT
Negative results must be combined with clinical observations
and patient history.
Nucleic Acid Amplification test (NAAT)performed on the
[employer] platform.
Diagnostic Testing:
Physical Exam
-
HEENT: Normocephalic, Anicteric and Moist Mucous Membranes
Cardiovascular: S1/S2 and Regular Rhythm
Respiratory: Wheeze (small left apical, clear on rest of exam) and Non-Labored Respirations
GI: Soft, Non Distended and Non Tender
Neurology: Awake, Alert, Oriented and No Motor Deficits
Skin: Warm, Dry and Good Color
General: Comfortable, Good Appetite and Other (NAD)
Assessment
-
Patient is an 84-year-old male with past medical history of CADs/p stent, hypertension, hyperlipidemia, gout, alcohol dependence, prior smoker presenting to the emergency department with shortness of breath and wheezing for the last 6 days. Patient
reports onset of cough that is productive of scant sputum 6 days ago. He denied having any fevers or chills. Saw PCP and started on inhaled beta agonist as well as oral steroids. Patient reported that his symptoms did not improve. Today he
noticed significant dyspnea on exertion when he walked up a flight of stairs and could not catch his breath afterwards. In the emergency department he was afebrile with a temp of 97.7, blood pressure 132/61 pulse 77 respiratory 23 sat 97% on room
air. Labs/EKG/CXR were unremarkable. Adm for AECOPD, we are consulted for eval.
AE COPD
Wheezing, SOB
Acute hypoxic respiratory failure, 88% on ambulation
Former smoker
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
Coronary artery disease
Hypertension,
Hyperlipidemia
Gout
Alcohol use disorder, 2 drinks of gin per day
Former smoker, 70 pack years, quit 1989
Plan
Stable on RA, now
Was never diagnosed with lung disease in past, never seen pulmonary.
No prior history of O2 use at home, agree with home O2 eval
Can set up if sat <88% on RA
Admitted for COPD exacerbation and placed on IV steroids.
Never had PFTs, suspected diagnosis, will confirm with OP FU
Agree with IV steroids initially, can transition to PO taper with improvement of wheezing
Can set up home nebs and device, per patient/daughter request
Former smoker, up to 2PPD for 35 years, quit in .
He is at risk for lung disease given usage
He has not had yearly screening
CXR showing no acute findings
Can obtain CT chest as OP if needed--suspect emphysema
ECHO in past normal
Has CAD s/p stent history
Follows with OP cards
PFT/6MWT as OP, we will arrange FU and testing
Reviewed plan of care with patient and daughter
All questions answered
Agree otherwise with d/c planning per team
Diagnostic Data
CXR 10/26/24- No acute cardiopulmonary process.
04/25/23- no acute findings
ECHO 06/21/23- Normal left ventricular size and systolic function. LV ejection fraction is 65%. No significant valvular disease. No significant change since the prior study of 2019.
Total time spent today was 60 minutes for this encounter. Time includes reviewing laboratory test/imaging results, reviewing pertinent medical records, obtaining and reviewing medical history, performing an appropriate exam, ordering medications,
tests and procedures. Time also includes documentation of this encounter, coordinating patient care and communicating with other healthcare professionals. Total time does not include separately billed tests performed on this date of service.
--- NOTE | 2024-10-28 15:10 | W.PN.UPDATE ---
Update Note
Progress Note Update
Patient is in need of oxygen on exertion due to pulse oximetry of 95% on room air at rest; 88% on room air with exertion.
Patient was placed on 2L O2 via nasal cannula with saturation of 94%. Oxygen will help to improve hypoxemia.
Patient is mobile within the home. Albuterol therapy has been discussed and is ineffective in treating hypoxemia-related symptoms.
Oxygen will improve the patient's symptoms.
[2024-10-28 15:27] VITALS: BP 157/63
--- NOTE | 2024-10-28 16:34 | CM ---
Chart reviewed and patient is for discharge to home today with home oxygen, script for nebulizer also provided, protective services case worker reached out to [facility], and script along with testing provided to [facility], testing also completed,
oxygen delivered to patient's room.
Plan; Home with home oxygen, patient declined visiting nurse services.
--- NOTE | 2024-10-28 17:53 | W.DCSUMMARY ---
Addendum entered and electronically signed by Anna Ramos MD 10/29/24 14:19:
Patient was discharged on 10/29/24
Original Note:
Discharge Summary
Discharge Data
Date of Admission: 10/27/24
Date of Discharge: 10/28/24
-
Pending Results: No
Hospital Course
Discharge diagnosis:
Acute hypoxic respiratory insufficiency
Acute bronchitis with bronchospasm
Suspected chronic obstructive pulmonary disease exacerbation
Former smoker
Rheumatoid arthritis on prednisone 5 mg daily
Coronary artery disease
Hypertension
Consults: Pulmonology
CXR:
Mild elevation of the left hemidiaphragm is noted. There is no parenchymal opacification or vascular congestion. The cardiomediastinal silhouettes are within the limits of normal. There is no pneumothorax, pleural effusion or mediastinal shift.
IMPRESSION:
No acute cardiopulmonary process.
Hospital course:
84-year-old male with a past medical history of rheumatoid arthritis on prednisone, former smoker, coronary artery disease, and hypertension was admitted for acute hypoxic respiratory insufficiency secondary to acute bronchitis with bronchospasm.
Since he is a former smoker, he has suspected acute on chronic COPD exacerbation. He was treated with IV steroids, azithromycin, and bronchodilators. He was seen in conjunction with pulmonology, and recommended to have outpatient pulmonary tests.
After several days, his breathing improved. He is medically stable and cleared by pulmonology for discharge on prednisone taper, azithromycin, and bronchodilators. Home oxygen prescription evaluation was performed, he needs 2 L with activity. He
needs to follow-up with his primary care doctor in 1 week, and pulmonology in the office as scheduled.
Disposition: Home self-care
Discharge planning: Required 41 minutes
Discharge Plan
-
Patient Disposition: Home (Routine Discharge)
Discharge Diagnosis/Procedures: Acute bronchitis with bronchospasm, concern for chronic obstructive pulmonary disease with history of smoking, hypoxia
Condition: Good
Diet: Low Fat and Low Cholesterol
Activity: As tolerated
Activity Restrictions/Additional Instructions:
Please take your steroid taper as directed.
After you complete the taper, resume your previous prednisone 5 mg daily.
You need oxygen, 2 L with activity.
Follow-up with your family doctor in 1 week, and pulmonology in the office.
They can check your oxygen, and wean as tolerated.
Referrals:
Caty Limon MD [Active, Pulmonary Medicine] - in two to three weeks
Referral Note: PFT/6MWT with appointment
UNKNOWN - PT DOES,NOT KNOW [Family Provider]
Prescriptions:
New
ipratropium-albuterol 0.5 mg-3 mg(2.5 mg base)/3 mL Solution For Nebulization
3 ml inhalation R Q4HPRN PRN (Reason: shortness of breath/wheezing) 30 Days Qty: 120 0RF
prednisone 10 mg Tablet
See Rx Instructions .ROUTE .COMPLEX Qty: 45 0RF
Rx Instructions:
Take By Mouth:
50 mg daily x3 days, 40 mg daily x3 days,
30 mg daily x3 days, 20 mg daily x3 days,
10 mg daily x3 days, then 5 mg daily
azithromycin 250 mg Tablet
500 mg PO Q24H 5 Days Qty: 10 0RF
Continued
amlodipine 10 mg Tablet
10 mg PO DAILY
niacin 100 mg Tablet
500 mg PO BID
aspirin 81 mg Tablet,Chewable
81 mg PO DAILY
metoprolol succinate 25 mg Tablet Extended Release 24 Hr
25 mg PO DAILY
ramipril 10 mg Capsule
10 mg PO BID
febuxostat [Uloric] 80 mg Tablet
80 mg PO DAILY
rosuvastatin 20 mg Tablet
20 mg PO DAILY
Held
prednisone 5 mg Tablet
5 mg PO DAILY
Hold Instructions: Resume on 11/13/24.
Discharge Orders:
Discharge Patient (As Directed); Ordered 10/28/24
Ordered By: Dillon Meehan
Discharge Date and Time
Print Language: KOREAN
--- NOTE | 2024-10-28 18:04 | PTCARENOTE ---
Patient's daughter expressed that she is unable to obtain nebulizer for patient home use due to supplier closing at 6:00pm and would prefer he be discharged home tomorrow when equipment is obtained. Dr. Castillo.
[2024-10-28] MEDS: LOVENOX 40 MG SC (18:39)
[2024-10-28 19:58] VITALS: BP 129/50
[2024-10-28] MEDS: ZITHROMAX 500 MG PO (21:41)
[2024-10-28 22:56] VITALS: BP 106/73
[2024-10-29 07:00] VITALS: BP 154/76
[2024-10-29] MEDS: PULMICORT 0.5 MG INH (07:50)
[2024-10-29] MEDS: DUONEB 3 ML INH (07:50)
[2024-10-29] MEDS: ULORIC 80 MG PO (08:31)
[2024-10-29] MEDS: LOW STRENGTH ASPIRIN 81 MG PO (08:31)
[2024-10-29] MEDS: ALTACE 10 MG PO (08:31)
[2024-10-29] MEDS: CRESTOR 20 MG PO (08:31)
[2024-10-29] MEDS: NORVASC 10 MG PO (08:31)
[2024-10-29] MEDS: TOPROL XL 25 MG PO (08:31)
[2024-10-29] MEDS: SOLU-MEDROL PF 40 MG IV (08:32)
--- NOTE | 2024-10-29 10:14 | W.PN.HOSP.TC ---
Today's Communication/Plan
-
ready for discharge today
Assessment / Plan
Assessment / Plan
HPI: 84-year-old with prior smoking history who presents to the emergency department with cough and shortness of breath. He has no fevers or chills. There is no leukocytosis. He has no evidence of pulmonary edema or peripheral edema. There is no
focal infiltrates on x-ray. His cough was productive of scant sputum. However he has not improved despite oral steroids and inhaled beta agonist at home. Patient has quit smoking over 30 years ago and denies frequent hospitalizations or ED visits
for pulmonary symptoms. My examination he has scattered wheezes throughout the lung martinez. There are no crackles. His peak flow is about 200. This is consistent with acute bronchitis although his lack of sputum is a bit atypical.
#Acute bronchitis with bronchospasm
#Suspected acute on chronic COPD exacerbation
#Mild hypoxia
#Former smoker
Patient smoked from 17 years old to 50 years old, range from a half a pack per day to 2 packs/day, quit in 1989
He has never had PFTs
Afebrile, no leukocytosis, negative for flu
Chest x-ray negative for cardiopulmonary disease
Was satting 90% on room air in the ED, then placed on 2 L of oxygen, wean as tolerated
Improving on IV Solu-Medrol, bronchodilators, azithromycin
Appreciate pulmonology input, patient has suspected acute on chronic COPD exacerbation
Home oxygen prescription evaluation performed, he needs 2 L with activity
Medically stable for discharge on prednisone taper, bronchodilators, azithromycin to complete a 7-day course
After his prednisone taper, he is to resume his previous home prednisone 5 mg daily that he takes for rheumatoid arthritis
Follow-up with PCP in 1 week, and pulmonology in the office
#Rheumatoid arthritis
Hold prednisone 5 mg daily while on high-dose prednisone
#Coronary artery disease
Continue aspirin statin and metoprolol
#Hypertension
Continue ramipril and amlodipine
#Daily alcohol use
Updated daughter at bedside 10/28
DVT prophylaxis�Lovenox subcu
CODE STATUS�full code
Physical Exam
General: No acute distress
HEENT: Normocephalic, Atraumatic, EOMI, MMM
Respiratory: Mild expiratory wheezing
Cardiac: Normal S1/S2, Regular Rate and Rhythm
GI: Soft, Nontender, Nondistended, Normal Bowel Sounds
Extremities: No Clubbing, Cyanosis, or Edema
Neuro: Nonfocal/Grossly Intact
Psych: Calm, Cooperative
Derm: No Visible lesions
Anticipated Discharge: Today
Subjective/Interval History
-
Date of Service: October 29, 2024
feeling well
no active complaints
Objective Data
-
Vital Signs:
Vital Signs
Temp Pulse Resp BP Pulse Ox
97.6 F 72 18 154/76 97
10/29/24 07:00 10/29/24 07:54 10/29/24 07:54 10/29/24 07:00 10/29/24 07:54
I&O
10/28/24 10/29/24 10/30/24
06:59 06:59 06:59
Intake Total 960 / 960 1380 / 1380
Balance 960 / 960 1380 / 1380
Review of Systems
-
History Source: Patient
All other systems: Reviewed and negative
Physical Exam
-
General: No Apparent Distress
HEENT: PERRLA
Respiratory: Negative Wheezes
Cardiac: Regular Rhythm and S1/S2
GI: Soft and Nontender
Musculoskeletal: No Edema
Skin: Warm and Dry; Negative Rash
Neuro: AO x 3
Psych: Calm
Data Reviewed
-
Diagnostic Radiology: Report Reviewed by me
Labs: Labs Reviewed by me
--- NOTE | 2024-10-29 10:56 | CM ---
athlete manager reviewed patient's chart and patient has been cleared for discharge today, oxygen has been delivered.
Plan; Home today with oxygen from [employer].
[2024-10-29] MEDS: DUONEB INH (11:32)
== END 2024-10-29 11:40 | disposition home or self-care (01) | DRG 202 ==
LOC: 4 WEST ACU 01:43
PROVIDERS: Family Medicine; ADMITTING PHYSICIAN Internal Medicine; ATTENDING PHYSICIAN Student in an Organized Health Care Education/Training Program; CONSULT PHYSICIAN Internal Medicine; EMERGENCY PHYSICIAN Emergency Medicine
DX: J20.9 Acute bronchitis, unspecified (principal); J44.0 Chronic obstructive pulmonary disease with (acute) lower respiratory infection; J44.1 Chronic obstructive pulmonary disease with (acute) exacerbation; Z87.891 Personal history of nicotine dependence; I25.10 Atherosclerotic heart disease of native coronary artery without angina pectoris; I10 Essential (primary) hypertension; Z79.82 Long term (current) use of aspirin; Z79.899 Other long term (current) drug therapy; F10.10 Alcohol abuse, uncomplicated; M06.9 Rheumatoid arthritis, unspecified; R06.89 Other abnormalities of breathing; R09.02 Hypoxemia
CPT/HCPCS: 71046; 80053; 83880; 84484; 85025; 87502; 87811; 93005; 94640; 96374; 99285

== ENCOUNTER 2025-02-28 11:36 | Emergency (ER) | payer MEDICARE, OTHER, SELFPAY ==
[2025-02-28 11:45] VITALS: BP 161/64
[2025-02-28] MEDS: TYLENOL 650 MG PO (12:32)
[2025-02-28] MEDS: ADACEL 0.5 ML IM (12:33)
--- NOTE | 2025-02-28 13:17 | ED.GENMED ---
History of Present Illness
General
Chief Complaint: Musculo-Skeletal Complaint
Source: patient and family
Exam Limitations: none
Time Seen by Provider: 02/28/25 12:00
History of Present Illness
History of Present Illness:
Patient is an 84-year-old male with history of CAD, hypertension who presents to the emergency department after mechanical trip and fall yesterday. Patient tripped on a crate in a store aisle falling landing on both of his knees and striking his
head. This fall was witnessed and there was no LOC.
Patient reports progressively worsening pain in right knee and difficulty ambulating today. He denies any headache, neck pain, or back pain. No chest pain or shortness of breath.
He sustained a laceration to his left ankle which he wrapped yesterday. He is unsure when his last tetanus shot was.
He does not take any oral anticoagulation.
Past History
Past History
ED Past Medical History: CAD (1 stent followed by CBC), HTN, Hypercholesterolemia and Other (gout)
Social History
Tobacco: Former smoker
Alcohol: Daily (Gin daily after 5pm, 1-3 glasses/day)
Drug: None
Living: with family
Employment: Employed
Review of Systems
Review of Systems
Allergies reviewed?: Yes
All Other Systems: ROS reviewed and negative except as documented in HPI and ROS
Phy Exam
Physical Exam
Physical Exam:
Vitals: Hypertensive, otherwise vital signs are stable. Afebrile
General: Patient is well appearing, no acute distress
Skin: V-shaped skin tear to left anterior ankle
Head: Normocephalic, hematoma to left frontal scalp.
Eyes: Sclera nonicteric. EOMs intact. Pupils equal round and reactive to light bilaterally. No nystagmus.
Throat: Protecting airway
Neck: Normal ROM, no cervical spine tenderness, no meningismus
Cardiac: Regular rate and rhythm, no murmurs.
Pulm: Normal respiratory effort, no wheezes, rales, rhonchi heard on exam
Abdomen: Abdomen soft and nontender.
Extremities: Skin tear to left ankle as above. No bony tenderness to LLE with full ROM. Mild tenderness of right knee with full ability to extend. Otherwise RLE atraumatic and nontender. No obvious defomirty of LUE with mild tenderness at radial
head. RUE atraumatic and nontender. Distal pulses intact with normal sensation.
Neuro: AAOx3. CN II-XII grossly intact. No focal neurologic deficits.
Psychiatric: Normal affect.
Course
Orders/Labs/Results
Orders:
Orders
02/28/25 12:23
CT Head W/o Iv Contrast Urgent
Comment:
Reason For Exam: fall
Cervical Spine wo Contrast CT [CT Cervical Spine W/o Iv Contr] Urgent
Comment:
Reason For Exam: fall
Acetaminophen [Tylenol] 650 mg PO NOW STA
Tetanus/Diphth/Acelpertussis [Adacel] 0.5 ml IM .ONCE ONE
Elbow, 3 view, Left [CR Elbow - Left Min 3 Views ] Urgent
Comment:
Reason For Exam: fall
Knee, Right 4 or More Views [CR Knee- Right 4 Or More View*] Urgent
Comment:
Reason For Exam: fall
02/28/25 13:53
Knee Immobilizer Right-Treatme ONCE
02/28/25 13:54
Sling Left-Treatment ONCE
Splints/Slings/Crut- Treatment ONCE
Location: Left
Type of Splint: Long Arm
Vital Signs
Initial and Last Documented VS:
Initial Vital Signs
Temp Pulse Resp BP Pulse Ox
97.4 F 71 18 161/64 95
02/28/25 11:45 02/28/25 11:45 02/28/25 11:45 02/28/25 11:45 02/28/25 11:45
Last Documented Vital Signs
Temp Pulse Resp BP Pulse Ox
97.4 F 71 18 161/64 95
02/28/25 11:45 02/28/25 11:45 02/28/25 11:45 02/28/25 11:45 02/28/25 13:18
Procedures
Splinting/Sling Placement
Left Arm:
Procedure completed by: Pierre Limon RN
Pre-splint extermity exam: neurovascular intact
Type of splint: posterior long arm
Splint material: fiberglass
Splint checked by provider?: Yes
Type of sling: sling fitted
Normal distal neurovascular exam?: Yes
MDM/Problems Addressed
Differential Diagnosis Includes:
Not limited to: contusion, concussion, intracerebral hemorrhage, ligamentous injury of knee, patellar fx, tibial plateau fx, radial head fx, etc
MDM/Problems Addressed:
84-year-old male presents following a mechanical fall yesterday with a head strike but no neurological symptoms. He reports pain in the left elbow, right knee, and has a skin tear on the left ankle.
He is hemodynamically stable with no neurologic deficits. Exam notable for a small contusion to the left frontal scalp, mild tenderness of the left elbow and right patella, and no neurovascular compromise of the extremities. No signs of trauma to
the neck, chest, or abdomen.
CT of the head and cervical spine reveal no acute traumatic injuries. Left elbow X-ray shows no obvious fracture but identifies a small joint effusion; occult fracture cannot be excluded. A posterior long arm splint was applied pending orthopedic
evaluation. Right knee X-ray demonstrates a small hairline fracture of the patella, and the patient was placed in a knee immobilizer.
The skin tear on the left ankle was irrigated and approximated with Steri-Strips. Tetanus immunization was updated.
There are concerns regarding patient safety at home due to limited mobility from the right knee immobilizer and left arm splint, impairing walker use and increasing fall risk. Rehabilitation placement was recommended; however, the patient and
daughter declined. The patient lives at home with his , with his daughter living next door. He is currently ambulating and able to bear weight on the right leg.
Patient will be discharged home with strict return precautions and outpatient orthopedic follow-up.
Chronic conditions affecting care:
HTN
Acute Exacerbation and/or Progression of Chronic Illness:
Acutely hypertensive
*Radiology
Radiology exam reviewed: radiology read reviewed
*Pulse Oximetry
SaO2: 95
Patient hypoxic: no
*EKG
Interpreted by ED Provider?: NA
*Research Instrumentation Technician Interpretation
Rate: Research Instrumentation Technician- N/A
*Critical Care Note
Total Time (30-74mins, 75-104mins- exclusive of procedures): Not Applicable
ED Attending Note
-
Portions of this chart may have been created with voice recognition software.� Occasional wrong word or��sound alike� substitutions may have occurred due to the inherent limitations of voice recognition software.
Discharge Plan
Departure
Patient Disposition: Home (Routine Discharge)
Date of Disposition: 02/28/25
Time of Disposition: 14:52
Patient with high blood pressure during this ER visit?: Yes
Condition: Good
Discharge Problem:
Fall, Closed fracture of right patella, Injury of left elbow, Skin tear left ankle
Instructions: Head Injury in Adults (DC), Patella Fracture ED, Wound care - ED (DC), BLOOD PRESSURE
Prescriptions:
No Action
amlodipine 10 mg Tablet
10 mg PO DAILY
niacin 100 mg Tablet
500 mg PO BID
aspirin 81 mg Tablet,Chewable
81 mg PO DAILY
metoprolol succinate 25 mg Tablet Extended Release 24 Hr
25 mg PO DAILY
ramipril 10 mg Capsule
10 mg PO BID
febuxostat [Uloric] 80 mg Tablet
80 mg PO DAILY
rosuvastatin 20 mg Tablet
20 mg PO DAILY
prednisone 5 mg Tablet
5 mg PO DAILY
ipratropium-albuterol 0.5 mg-3 mg(2.5 mg base)/3 mL Solution For Nebulization
3 ml inhalation R Q4HPRN PRN (Reason: shortness of breath/wheezing) 30 Days Qty: 120 0RF
prednisone 10 mg Tablet
See Rx Instructions .ROUTE .COMPLEX Qty: 45 0RF
Rx Instructions:
Take By Mouth:
50 mg daily x3 days, 40 mg daily x3 days,
30 mg daily x3 days, 20 mg daily x3 days,
10 mg daily x3 days, then 5 mg daily
azithromycin 250 mg Tablet
500 mg PO Q24H 5 Days Qty: 10 0RF
Referrals:
Giacomo Garcia, DO [Family Provider, Family Practice]
Alicia Fuchs DO [Active, Orthopedics] - Next open appointment
Activity Restrictions/Additional Instructions:
RETURN TO THE EMERGENCY DEPARTMENT WITH ANY SEVERE HEADACHE OR NECK PAIN, CHANGES IN MENTAL STATUS, AMBULATORY DYSFUNCTION, SIGNIFICANT SWELLING OR RIGHT LEG OR LEFT ARM, ANY SIGNS INFECTION OF WOUND OF LEFT ANKLE, OR ANY OTHER CONCERNS
- As discussed�the x-ray of your right knee showed findings consistent with a nondisplaced patellar fracture. You should continue to wear knee immobilizer and ambulate as tolerated. Apply ice.
- Your x-ray of your left elbow showed a small joint effusion�you may have an underlying fracture of your left elbow. Please keep splint on until seen by orthopedics. Continue to elevate and apply ice.
- Please use cane to assist with ambulation. Take Tylenol as needed for pain.
- Please keep laceration on left ankle clean and dry. Steri-Strips will fall off on their own. Monitor closely for signs of infection
- Follow-up with primary care and orthopedics for further evaluation/management to ensure that your symptoms improve
Monitor your symptoms closely and return to the emergency department with any acute worsening/new symptoms or any other concerns
Interventions
Interventions:
*Risk Screen - Suicide Last Done: 02/28/25 11:47
*Neglect/Abuse Screening Last Done: 02/28/25 11:47
*Nursing Disposition Last Done: 02/28/25 15:20
ED-Musculoskeletal Assessment Last Done: 02/28/25 12:44
ED- Neurological Assessment Last Done: 02/28/25 12:44
ED-Skin Assessment Last Done: 02/28/25 12:44
Discharge Date and Time
Discharge Date/Time: 02/28/25 15:20
Print Language: CZECH
== END 2025-02-28 15:20 | disposition home or self-care (01) ==
LOC: EMR 11:36
PROVIDERS: EMERGENCY PHYSICIAN Student in an Organized Health Care Education/Training Program; FAMILY PHYSICIAN Family Medicine
DX: S82.001A Unspecified fracture of right patella, initial encounter for closed fracture (principal); S59.902A Unspecified injury of left elbow, initial encounter; S91.012A Laceration without foreign body, left ankle, initial encounter; S00.03XA Contusion of scalp, initial encounter; W18.09XA Striking against other object with subsequent fall, initial encounter; Y92.512 Supermarket, store or market as the place of occurrence of the external cause; E78.00 Pure hypercholesterolemia, unspecified; I10 Essential (primary) hypertension; I25.10 Atherosclerotic heart disease of native coronary artery without angina pectoris; Z87.891 Personal history of nicotine dependence; Z23 Encounter for immunization
CPT/HCPCS: 29505; 29105; 90471; 99284; 70450; 72125; 73080; 73564; 90715

== ENCOUNTER → 2025-03-14 20:20 | Outpatient (REF) | payer MEDICARE, OTHER, SELFPAY | LOC: PAVMRI 20:20 | PROVIDERS: ATTENDING PHYSICIAN Physician Assistant Surgical | DX: M25.561 Pain in right knee (principal) | CPT/HCPCS: 73721 ==